=== PATIENT | male | born 1970 | race American Indian/Alaskan Native ===

== ENCOUNTER 2017-03-08 12:07 | Emergency (ER) | payer BC ==
[2017-03-08 13:12] VITALS: BP 137/77
[2017-03-08] MEDS ORDERED: TYLENOL PO ONE (13:12)
--- NOTE | 2017-03-08 13:46 | Emergency Department Report ---
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 Patient fell backwards and hit the back of his head. Patient states he did lose consciousness. Patient is complaining of a 8 out of 10 headache. Headache is global. The patient states the headache is aching he also. He also has discomfort in his neck and mid back as well. Patient is denying any extremity pain at this time. Patient denies nausea vomiting he he is able to move all extremities - Related Data Previous Rx's Medication Instructions Recorded Last Taken Type HYDROcodone/APAP 5-325 [Randolph 1 each PO Q4HR PRN #15 tablet 03/08/17 Unknown Rx 5/325] Ibuprofen [Motrin] 800 mg PO Q8HR PRN #20 tablet 03/08/17 Unknown Rx Meclizine [Antivert] 25 mg PO TID PRN #6 tablet 03/08/17 Unknown Rx methOCARBAMOL [Robaxin TAB] 500 mg PO Q6H #14 tablet 03/08/17 Unknown Rx Allergies Allergy/AdvReac Type Severity Reaction Status Date / Time No Known Allergies Allergy Verified 03/08/17 13:07 ED Review of Systems ROS: Stated complaint: FALLEN ON ICE Other details as noted in HPI Comment: All other systems reviewed and negative ED Past Medical Hx - Past Medical History Previous Medical History?: No - Surgical History Past Surgical History?: No - Social History Smoking Status: Current Every Day Smoker Substance Use Type: Alcohol - Medications Home Medications: Home Medications Medication Instructions Recorded Confirmed Last Taken Type HYDROcodone/APAP 5-325 [Randolph 1 each PO Q4HR PRN #15 tablet 03/08/17 Unknown Rx 5/325] Ibuprofen [Motrin] 800 mg PO Q8HR PRN #20 tablet 03/08/17 Unknown Rx Meclizine [Antivert] 25 mg PO TID PRN #6 tablet 03/08/17 Unknown Rx methOCARBAMOL [Robaxin TAB] 500 mg PO Q6H #14 tablet 03/08/17 Unknown Rx ED Physical Exam - General Limitations: No Limitations General appearance: alert, in no apparent distress - Head Head exam: Present: atraumatic, normocephalic - Eye Eye exam: Present: normal appearance - ENT ENT exam: Present: mucous membranes moist - Neck Neck exam: Present: normal inspection, tenderness (generalized tenderness) - Respiratory Respiratory exam: Present: normal lung sounds bilaterally. Absent: respiratory distress, wheezes, rales - Cardiovascular Cardiovascular Exam: Present: regular rate, normal rhythm. Absent: systolic murmur, diastolic murmur, rubs, gallop - GI/Abdominal GI/Abdominal exam: Present: soft, normal bowel sounds - Rectal Rectal exam: Present: deferred - Extremities Exam Extremities exam: Present: normal inspection - Back Exam Back exam: Present: normal inspection, tenderness (mid T-spine and lower T- spine tenderness in the midline there's no step-offs) - Neurological Exam Neurological exam: Present: alert, oriented X3 - Psychiatric Psychiatric exam: Present: normal affect, normal mood - Skin Skin exam: Present: warm, dry, intact, normal color. Absent: rash ED Course Vital Signs 03/08/17 13:07 Temperature 97.9 F Pulse Rate 59 L Respiratory 16 Rate Blood Pressure 137/77 O2 Sat by Pulse 97 Oximetry ED Medical Decision Making - Radiology Data Radiology results: report reviewed CT of the head and C-spine T-spine and L-spine are all within normal limits. X- ray of the pelvis shows no acute fractures Critical care attestation.: If time is entered above; I have spent that time in minutes in the direct care of this critically ill patient, excluding procedure time. ED Disposition Clinical Impression: Back pain Concussion Qualifiers: Encounter type: initial encounter Loss of consciousness presence/duration: with LOC of 30 min or less Qualified Code(s): S06.0X1A - Concussion with loss of consciousness of 30 minutes or less, initial encounter Disposition: - TO HOME OR SELFCARE Is pt being admited?: No Does the pt Need Aspirin: No Condition: Stable Instructions: Concussion (ED), Back Pain (ED), RICE Therapy (ED) Prescriptions: HYDROcodone/APAP 5-325 [Randolph 5/325] 1 each PO Q4HR PRN #15 tablet PRN Reason: Pain Ibuprofen [Motrin] 800 mg PO Q8HR PRN #20 tablet PRN Reason: Pain Meclizine [Antivert] 25 mg PO TID PRN #6 tablet PRN Reason: Vertigo methOCARBAMOL [Robaxin TAB] 500 mg PO Q6H #14 tablet Referrals: ANNAMARIE SCHUMACHER [Primary Care Provider] - 3-5 Days
[2017-03-08] MEDS ORDERED: TORADOL IM ONE (13:47)
[2017-03-08] MEDS ORDERED: MORPHINE IM ONE (13:47)
--- NOTE | 2017-03-08 14:17 | Cat Scan Report ---
CT HEAD WITHOUT CONTRAST: HISTORY: Fall, head injury. TECHNIQUE: Sequential 2.5mm CT images. COMPARISON: none. FINDINGS: Cerebral Parenchyma: Within normal limits. Cerebellum: Within normal limits. Brainstem: Within normal limits. Ventricles: Normal. Sella: Normal. Extra-axial spaces: Normal. Basal Cisterns: Normal. Intracranial Hemorrhage: None. Midline Shift: None. Calvarium: Normal. Sinuses: Normal. Mastoid Air Cells: Normal. Visualized Orbits: Normal. IMPRESSION: Cranial CT scan within normal limits.
--- NOTE | 2017-03-08 14:18 | Cat Scan Report ---
CT SCAN OF THE CERVICAL SPINE: HISTORY: Fall, injury. TECHNIQUE: Contiguous 1.25 mm axial images of the cervical spine were obtained. Sagittal and coronal reformatted images. FINDINGS: There is normal alignment of the cervical spine. The body, pedicles and posterior ligaments appear normal. No evidence of fracture or subluxation is seen. Multilevel degenerative changes identified. The spinal canal appears normal. The prevertebral soft tissues appear normal. IMPRESSION: Cervical spondylosis. No acute process is noted.
--- NOTE | 2017-03-08 14:42 | Cat Scan Report ---
CT THORACIC SPINE WITHOUT CONTRAST CT LUMBAR SPINE WITHOUT CONTRAST History: Fall. Technique: Helical CT with sagittal and coronal reformatted images. Findings: No evidence for fracture, malalignment or bone lesion. Minimal degenerative changes are noted at L4-5. The paraspinal soft tissues are within normal limits. The posterior ribs are intact. Impression: No evidence for acute injury to the thoracic or lumbar spine.
--- NOTE | 2017-03-08 14:44 | XRay Report ---
AP PELVIS: HISTORY: pain. AP view of the pelvis shows normal pelvic contour and soft tissues. The hips are symmetric and within normal limits as are the sacroiliac joints. IMPRESSION: Normal pelvis.
== END 2017-03-08 15:32 | disposition home or self-care (01) ==
LOC: ED 12:07
DX: S06.0X1A Concussion with loss of consciousness of 30 minutes or less, initial encounter (principal); M54.9 Dorsalgia, unspecified; F17.200 Nicotine dependence, unspecified, uncomplicated; W18.30XA Fall on same level, unspecified, initial encounter; Y93.89 Activity, other specified; Y92.89 Other specified places as the place of occurrence of the external cause; Y99.8 Other external cause status
CPT/HCPCS: 70450; 72125; 72128; 72131; 72170; 96372; 99284; J1885; J2270